=== PATIENT | female | born 1990 | race Caucasian/White ===

== ENCOUNTER 2017-03-15 13:00 | Emergency (ER) | payer BC ==
[2017-03-15] MEDS ORDERED: Albuterol Nebulizer 2.5mg/3mL HHN ONE (13:07)
[2017-03-15] MEDS ORDERED: Albuterol Nebulizer 2.5mg/3mL HHN STA (13:09)
--- NOTE | 2017-03-15 13:22 | ED Physician Chart ---
ED Chief Complaint/HPI - Patient Information Date Seen:: 03/15/17 Time Seen:: 13:05 Chief Complaint:: left flank pain History of Present Illness:: Patient developed pleuritic left flank pain and shortness of breath yesterday. Pain is sharp and increased with cough. Patient's had a cough since the beginning of January. The sputum was initially green but now is clear. Historian:: Patient Review:: Nurse's Note Reviewed ED Review of Systems - Review of Systems General/Constitutional: No fever, No chills Skin: No skin lesions Head: No headache Eyes: No loss of vision ENT: No earache Neck: No neck pain Cardio Vascular: No chest pain Pulmonary: SOB, Cough GI: No nausea, No vomiting, No diarrhea G/U: No dysuria Musculoskeletal: No bone or joint pain, No muscle pain Endocrine: No polyuria, No polydipsia Psychiatric: No prior psych history, No depression Hematopoietic: No bruising Allergic/Immuno: No urticaria Neurological: No syncope, No focal symptoms Family Medical History - Family Member Mother Age: 63 Ethnicity: Living Status: Still Living Other Medical History: hypothyroidism. ED Labs/Radiology/EKG Results - Lab Results Results: Laboratory Results - last 24 hr 03/15/17 03/15/17 13:20 13:29 Urine Source CLEAN C Urine Color YELLOW Urine Clarity CLEAR Urine pH 7.0 Ur Specific [place] 1.020 Urine Protein NEGATIVE Urine Glucose (UA) NEGATIVE Urine Ketones NEGATIVE Urine Blood NEGATIVE Urine Nitrate NEGATIVE Urine Bilirubin NEGATIVE Urine Urobilinogen 0.2 Ur Leukocyte Esterase NEGATIVE Urine RBC NONE SEEN Urine WBC NONE SEEN Ur Epithelial Cells NONE SEEN Urine Bacteria NONE SEEN POC Ur Test Negative ED Septic Shock - . Is Septic Shock (SBP<90, OR Lactate>4 mmol\L) present?: No ED Reassessment (Disposition) - Reassessment Reassessment:: felt better after breathing treatment. Left flank pain most likely from muscle strain caused by frequent coughing. Reassessment Condition:: Improved - Diagnosis Diagnosis:: Viral bronchitis - Aftercare/Follow up Instructions Aftercare/Follow-Up Instructions:: Refer to Discharge Instructions Medication Prescribed:: Albuterol metered-dose inhaler to take 2 puffs every 4 hours as necessary - Patient Disposition Discharge/Transfer:: Home Condition at Disposition:: Stable, Improved ED Discharge Plan - Patient Disposition Additional Instructions: TOLERATED.
[2017-03-15 13:42] LABS: URINE BILIRUBIN NEGATIVE (NEGATIVE); URINE BLOOD NEGATIVE (NEGATIVE); URINE GLUCOSE (UA) NEGATIVE (NEGATIVE); URINE KETONE NEGATIVE (NEGATIVE); URINE PROTEIN NEGATIVE (NEGATIVE); URINE UROBILINOGEN 0.2 E.U./dL (0.2 - 1.0)
[2017-03-15 14:14] LABS: URINE COLOR YELLOW
[2017-03-15 14:15] LABS: URINE BACTERIA NONE SEEN /hpf (NONE SEEN); URINE EPITHELIAL CELLS NONE SEEN /lpf (FEW); URINE RBC NONE SEEN /hpf (0-5); URINE WBC NONE SEEN /hpf (0-5)
--- NOTE | 2017-03-15 14:51 | Diagnostic Imaging Report ---
CHEST X-RAY: AP view INDICATION: Cough COMPARISON: None FINDINGS: Right basal increased lung markings are noted. There is no focal consolidation or pleural effusions The heart is normal in size. The osseous structures demonstrate no acute abnormalities. IMPRESSION: Right basal increased lung markings most likely due to atelectasis. No focal consolidation identified.
== END 2017-03-15 14:44 | disposition home or self-care (01) ==
LOC: ER 13:00
DX: J20.8 Acute bronchitis due to other specified organisms (principal)
CPT/HCPCS: 71010-TC; 81001-TC; 81025-TC; 94640; J7613